=== PATIENT | male | born 1980 | race Caucasian/White ===

== ENCOUNTER 2017-03-24 16:44 | Emergency (ER) | payer MEDICAID, OTHER ==
[~2017-03-24] VITALS: Ht 188 cm; Wt 90.7 kg
[2017-03-24] MEDS ORDERED: OXYCODONE/APAP 5-325 MG TABLET PO ONE (17:15)
--- NOTE | 2017-03-24 17:19 | NUR ---
Patient discharged to home in stable conditon. Written and verbal after care instructions given. Patient verbalizes understanding of instructions.
[2017-03-24 17:20] VITALS: BP 129/84
[2017-03-24] MEDS ORDERED: OXYCODONE/APAP 5-325 MG TABLET ONE (17:29)
== END 2017-03-24 17:20 | disposition home or self-care (01) ==
LOC: ER 16:44
DX: M54.5 Low back pain (principal); M79.604 Pain in right leg; G89.29 Other chronic pain
CPT/HCPCS: 99283; A4663

== ENCOUNTER 2017-09-21 23:06 | Emergency (ER) | payer OTHER ==
[~2017-09-21] VITALS: Ht 188 cm; Wt 90.7 kg
--- NOTE | 2017-09-21 23:39 | NUR ---
Patient has c/o RLE pain. patient state he had a fracture of his tib/fib in the past, unsure of exact timeline. Patient states he has chronic pain, he was unable to see his primary MD today so he comes in requesting analgesics at this time.
[2017-09-21] MEDS ORDERED: ONDANSETRON ODT 4 MG TAB.RAPDIS ONE (23:44)
[2017-09-21] MEDS ORDERED: HYDROMORPHONE 2 MG/1 ML DISP.SYRIN ONE (23:44)
[2017-09-21] MEDS ORDERED: ONDANSETRON ODT 4 MG TAB.RAPDIS SL ONE (23:45)
[2017-09-21] MEDS ORDERED: HYDROMORPHONE 1 MG/1 ML DISP.SYRIN IM ONE (23:45)
--- NOTE | 2017-09-21 23:49 | NUR ---
Patient discharged to home in stable conditon. Written and verbal after care instructions given. Patient verbalizes understanding of instructions. Ambulated from ER with stable gait. All belongings with patient. Patient will be driven home by taxi.
[2017-09-21 23:51] VITALS: BP 124/79
== END 2017-09-21 23:54 | disposition home or self-care (01) ==
LOC: ER 23:06
DX: G89.29 Other chronic pain (principal); M79.604 Pain in right leg; Z88.8 Allergy status to other drugs, medicaments and biological substances
CPT/HCPCS: 96372; 99283; A4663; J1170; Q0162

== ENCOUNTER 2017-12-26 01:06 | Emergency (ER) | payer OTHER ==
[~2017-12-26] VITALS: Ht 188 cm; Wt 90.7 kg
[2017-12-26] MEDS ORDERED: ONDA4TAB5 PO (01:33)
[2017-12-26] MEDS ORDERED: CLON2TAB4 PO (01:33)
[2017-12-26] MEDS ORDERED: PANT40TA2 PO (01:33)
--- NOTE | 2017-12-26 01:41 | NUR ---
TALHA MCCARTNEY AT BEDSIDE FOR MSE.
[2017-12-26] MEDS ORDERED: HYDROCODONE/APAP 10-325 MG TABLET ONE (01:57)
[2017-12-26] MEDS: HYDROCODONE/APAP 10-325 MG TABLET PO ONE (01:58)
[2017-12-26 01:59] VITALS: BP 131/79
--- NOTE | 2017-12-26 02:00 | NUR ---
Patient discharged to home in stable conditon. Written and verbal after care instructions given. Patient verbalizes understanding of instructions. Patient left ER via wheelchair accompanied by caregiver. VSS. No acute distress noted. All belongings with pt.
== END 2017-12-26 01:57 | disposition home or self-care (01) ==
LOC: ER 01:09
DX: G89.29 Other chronic pain (principal); Z88.8 Allergy status to other drugs, medicaments and biological substances; Z79.899 Other long term (current) drug therapy
CPT/HCPCS: 99283; A4663

== ENCOUNTER 2017-12-26 22:45 | Emergency (ER) | payer OTHER ==
[~2017-12-26] VITALS: Ht 188 cm; Wt 102.1 kg
[~2017-12-26 22:45] MED LIST: CLON2TAB4 PO; ONDA4TAB5 PO; PANT40TA2 PO
[2017-12-26] MEDS ORDERED: ONDANSETRON 4 MG/2 ML VIAL ONE (23:25)
[2017-12-26] MEDS ORDERED: HYDROMORPHONE 2 MG/1 ML DISP.SYRIN ONE (23:25)
[2017-12-26] MEDS ORDERED: ONDANSETRON 4 MG/2 ML VIAL IM ONE (23:30)
[2017-12-26] MEDS ORDERED: HYDROMORPHONE 1 MG/1 ML DISP.SYRIN IM ONE (23:30)
--- NOTE | 2017-12-26 23:40 | NUR ---
Patient discharged to home in stable conditon. Written and verbal after care instructions given. Patient verbalizes understanding of instructions. Patient reported reduced pain prior to discharge. Patient able to ambulate assisted by cane with steady gait. Patient left with all personal belongings.
[2017-12-26 23:44] VITALS: BP 133/88
== END 2017-12-26 23:40 | disposition home or self-care (01) ==
LOC: ER 22:45
DX: G89.29 Other chronic pain (principal); M79.604 Pain in right leg; Z88.8 Allergy status to other drugs, medicaments and biological substances; Z79.899 Other long term (current) drug therapy
CPT/HCPCS: A4663; J1170; J2405

== ENCOUNTER 2019-08-03 02:11 | Emergency (ER) | payer OTHER ==
[~2019-08-03] VITALS: Ht 188 cm; Wt 99.8 kg
[~2019-08-03 02:11] MED LIST changes: +CLON2TAB11 PO; -CLON2TAB4 PO
--- NOTE | 2019-08-03 02:25 | NUR ---
Patient ambulating with steady gait. A&O x4. c/o severe backpain x 1 week 9/10 burning pain per patient. 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 Speech is clear and able to make needs known / follow commands. Breathing even and unlabored. denies any cough or SOB. Patient denies any / GI distress. Patient states he took lyft to get here.
--- NOTE | 2019-08-03 02:39 | NUR ---
Dr. Schultz at bedside for MSE
[2019-08-03] MEDS ORDERED: IBUPROFEN 800 MG TABLET PO ONE (02:45)
[2019-08-03] MEDS ORDERED: OXYCODONE/APAP 5-325 MG TABLET PO ONE (02:45)
[2019-08-03] MEDS ORDERED: OXYCODONE/APAP 5-325 MG TABLET ONE (02:48)
[2019-08-03] MEDS ORDERED: IBUPROFEN 800 MG TABLET ONE (02:48)
--- NOTE | 2019-08-03 02:55 | NUR ---
Patient discharged to home in stable conditon. Written and verbal after care instructions given. Patient verbalizes understanding of instructions. Patient ambulatory with steady gait. Patient states he will take lyft home. Patient showed proof of ordering lyft
[2019-08-03 02:59] VITALS: BP 128/69
== END 2019-08-03 02:55 | disposition home or self-care (01) ==
LOC: ER 02:16
DX: G89.29 Other chronic pain (principal); M54.5 Low back pain; M79.661 Pain in right lower leg; Z88.8 Allergy status to other drugs, medicaments and biological substances; F19.90 Other psychoactive substance use, unspecified, uncomplicated; Z79.899 Other long term (current) drug therapy; V89.2XXA Person injured in unspecified motor-vehicle accident, traffic, initial encounter; Y93.89 Activity, other specified; Y92.89 Other specified places as the place of occurrence of the external cause; Y99.8 Other external cause status
CPT/HCPCS: A4663